=== PATIENT | male | born 1965 | race Caucasian/White ===

== ENCOUNTER 2016-12-20 13:26 | Emergency (ER) | payer OTHER ==
[2016-12-20 13:43] VITALS: BP 143/81; PULSE 80; TEMP 98.6; BMI 30.2
--- NOTE | 2016-12-20 14:41 | PDOC ---
History of Present Illness - General Chief Complaint: Bite Stated Complaint: BITE ON PINKY Time Seen by Provider: 12/20/16 14:21 History Source: Patient Exam Limitations: No Limitations - History of Present Illness Initial Comments: 12/20/16 14:41 51 yr male bit by a house mouse left pinky this am at home. Severity: Yes: mild Location: reports: extremities (left 5th digit) Past History - Past Medical History Allergies/Adverse Reactions: Allergies Allergy/AdvReac Type Severity Reaction Status Date / Time No Known Allergies Allergy Verified 12/20/16 13:38 Home Medications: Ambulatory Orders Levothyroxine [Synthroid -] 0.75 mg PO DAILY 06/08/14 Thyroid Disease: Yes - Immunization History Immunization Up to Date: Yes - Psycho/Social/Smoking Cessation Hx Anxiety: No Suicidal Ideation: No Smoking History: Never smoked Hx Alcohol Use: Yes (rarely) Substance Use Type: None Review of Systems - Review of Systems Able to Perform ROS?: Yes Is the patient limited Sammarinese proficient: No Constitutional: No: Symptoms Reported HEENTM: No: Symptoms Reported, Dental Problems Respiratory: No: Symptoms reported Cardiac (ROS): No: Symptoms Reported ABD/GI: No: Symptoms Reported Integumentary: Yes: Symptoms Reported Neurological: No: Symptoms reported *Physical Exam - Vital Signs Last Vital Signs Temp Pulse Resp BP Pulse Ox 98.6 F 80 16 143/81 99 12/20/16 13:40 12/20/16 13:40 12/20/16 13:40 12/20/16 13:40 12/20/16 13:40 - Physical Exam General Appearance: Yes: Nourished, Appropriately Dressed HEENT: positive: EOMI, LUIS ALBERTO, Normal ENT Inspection, TMs Normal, Pharynx Normal Neck: positive: Supple Respiratory/Chest: positive: Lungs Clear, Normal Breath Sounds Cardiovascular: positive: Regular Rhythm, Regular Rate Gastrointestinal/Abdominal: positive: Normal Bowel Sounds, Soft Extremity: positive: Normal Capillary Refill, Normal Range of Motion, Other ( left pinky digit with superficial puncture wound tip of finger, no bleeding no swelling or redness) Integumentary: positive: Normal Color, Dry, Warm Neurologic: positive: Fully Oriented, Alert, Normal Mood/Affect, Normal Response , Motor Strength 5/5 Procedures - Laceration/Wound Repair Left 5th digit Finger Wound Length: to 2.5 cm Wound's Depth, Shape: superficial - Additional Procedures Progress: 12/20/16 14:43 puncture wound left 5th digit from mouse bite pt cleaned the wound with antibacterial soap and water prior to arrival wound cleaned with saline, peroxide and betadine, bacitracin placed with bandaid. Medical Decision Making - Medical Decision Making 12/20/16 14:45 cc: mouse bite left pinky will clean and bandage no sign of infection FROM [place] intact *DC/Admit/Observation/Transfer Diagnosis at time of Disposition: Bitten by mouse Qualifiers: Encounter type: initial encounter Qualified Code(s): W53.01XA - Bitten by mouse , initial encounter - Discharge Dispostion Disposition: HOME Condition at time of disposition: Good - Referrals Referrals: Asia Coe [Primary Care Provider] - - Patient Instructions Additional Instructions: watch for any signs of infection, redness, increased pain or drainage or other concerns keep clean and dry with soap and water, apply bacitracin and bandaid daily until healed.
== END 2016-12-20 14:47 | disposition home or self-care (01) ==
LOC: JERFT 13:26
DX: S61.257A Open bite of left little finger without damage to nail, initial encounter (principal); W53.01XA Bitten by mouse, initial encounter; Y93.9 Activity, unspecified; Y92.009 Unspecified place in unspecified non-institutional (private) residence as the place of occurrence of the external cause; E07.9 Disorder of thyroid, unspecified
CPT/HCPCS: 99281-25